=== PATIENT | male | born 1970 | race Caucasian/White ===

== ENCOUNTER 2019-01-21 02:07 | Observation (INO) | payer OTHER ==
[~2019-01-21] VITALS: Ht 185.4 cm; Wt 101.5 kg
[2019-01-21] MEDS ORDERED: NEOMYCIN-POLYMY10 M1 OTIC (02:46)
--- NOTE | 2019-01-21 05:50 | NUR ---
PT ARRIVES TO FLOOR VIA STRETCHER. PT ABLE TO STAND AND AMBULATE INTO THE BATHROOM TO VOID INDEPENDENTLY. HOB ELEVATED FOR PT'S COMFORT. CPOX IN PLACE. SA02 93% ON RA. TELE #9. SR, HR 93. PT AND TEARFUL DURING ADMISSION. ICE WATER, CRANBERRY JUICE PROVIDED. THERMOSTAT DECREASED PER PT REQUEST. PT AND DENY FURTHER NEEDS AT THIS TIME. PT AND ORIENTED TO ROOM AND DIRECTION TO CALL FOR ASSISTANCE OUT OF BED PROVIDED. CALL LIGHT WITHIN REACH.
--- NOTE | 2019-01-21 08:07 | NUR ---
PATIENT SITTING UP AT BEDSIDE WITH IN ROOM. LEAD V RECONNECTED WITH SMALL AMOUNT OF HAIR REMOVAL. PATIENT REPORTS HIS HEAD "FEELS HOT." TEMPERATURE TAKEN OF 97.6. PATIENT STATES HE HASN'T SLEPT ALL NIGHT, DARKENING SHADES ARE DRAWN, WARM BLANKET OFFERED BUT DECLINED. PATIENT PREFERS COOLER ROOM TEMP. HE IS ADVISED WILL LET PATIENT SLEEP FOR A FEW HOURS. ASSESSMENT COMPLETED. LUNG SOUNDS DIM IN UPPERS WITH CRACKLES, DIM IN LL BASE WITH CRACKLES, AND CRACKLES IN RL BASE. SPO2 OF 93% ON RA, NO SOB OR LABORED BREATHING. PATIENT APPEARS STOIC, IS TEARFUL. PATIENT AMBULATES STEADILY TO BATHROOM, VOIDING WELL. DENIES ANY FURTHER NEEDS AT THIS TIME, CALL LIGHT WITHIN REACH.
--- NOTE | 2019-01-21 09:42 | NUR ---
DR LUO AWARE OF BP OUTSIDE PARAMETERS. HE WILL WRITE ORDERS.
--- NOTE | 2019-01-21 11:28 | EKG ---
[facility] [address] [facility] [place] [address] Signed Sinus tachycardia Possible Left atrial enlargement Borderline ECG No previous ECGs available Confirmed by MANUELA LUO MD ([id number]) on 01/21/2019 11:27:53 AM Electronically Signed By: MANUELA LUO MD 01/21/19 1128 PATIENT NAME: STONE HALL Electrocardiogram DATE OF : 70 PHYSICIAN: MANUELA LUO MD REPORT #: [id number] REPORT IS CONFIDENTIAL AND NOT TO BE RELEASED WITHOUT AUTHORIZATION
--- NOTE | 2019-01-21 12:04 | NUR ---
PT GIVEN VISTRIL 25MG PO PRN AT THIS TIME FOR ANXIETY. DISCUSSED STRESS MANAGEMENT WITH BOTH PT AND PT'S SPOUSE. TALKED WITH SPOUSE ABOUT THE POSSIBLE NEED FOR HER TO CONTACT HER PCP FOR HELP WITH STRESS MANAGEMENT WELL IF NEEDED, SHE IS ALSO VERY ANXIOUS ABOUT THEIR CURRENT PENDING DX.
--- NOTE | 2019-01-21 14:15 | NUR ---
LABS DRAWN, DR LUO CALLED FOR CT REPORT. REPORT NOT AVAILABLE YET. RN CALLED CARMELINA WHO WILL CALL RADIOLOGIST TO GET REPORT. PT SLEEPINFG, NO NEEDS AT THIS TIME.
[2019-01-21] MEDS ORDERED: BENAZEPRIL HCL10 MG PO (16:11)
[2019-01-21] MEDS ORDERED: HYDROXYZINE HCL50 MG PO (16:12)
[2019-01-21] MEDS ORDERED: AMLODIPINE BESYL5 MG PO (16:12)
--- NOTE | 2019-01-21 18:01 | NUR ---
DISCHARGE TEACHING COMPLETE. DISCUSSED FOLLOW-UP, WHEN TO CALL THE DR, SYMPTOMS TO WATCH FOR, MEDICATIONS, AND MEDICATION SIDE EFFECTS. RIN, PHARMACIST, GAVE PARTIAL FILL OF MEDICATIONS FOR TONIGHT UNTIL PT CAN TAKE WRITTEN SCRIPT TO PHARMACY. PT VERBALIZED UNDERSTANDING OF PLAN OF CARE AND FOLLOW UP. IV REMOVED, CATH INTACT. TELE REMOVED. PT AMBULATED OUT OF FACILITY WITH .
== END 2019-01-21 17:25 | disposition home or self-care (01) ==
LOC: ED 02:07 → MS 03:52
PROVIDERS: ADMIT Internal Medicine
DX: R07.9 Chest pain, unspecified (principal); I10 Essential (primary) hypertension; E78.5 Hyperlipidemia, unspecified; R73.03 Prediabetes; R79.89 Other specified abnormal findings of blood chemistry; R59.0 Localized enlarged lymph nodes; R91.8 Other nonspecific abnormal finding of lung field; Z88.4 Allergy status to anesthetic agent; Z82.3 Family history of stroke; Z80.6 Family history of leukemia; Z80.1 Family history of malignant neoplasm of trachea, bronchus and lung; Z80.3 Family history of malignant neoplasm of breast
CPT/HCPCS: 36415; 71045; 71260; 74177; 80053; 80061; 83036; 83615; 83735; 83880; 84484; 84550; 85025; 90688; 93005; 93010; 96374; 99285-25; G0008; G0378; J1940; J7030; Q0177; Q9967